=== PATIENT | male | born 1965 | race Hispanic/Latino ===

== ENCOUNTER → 2024-07-21 | Day surgery (SDC) | payer BC ==
[~2024-07-21] MED LIST: LIDOCAINE HCL 2% LOCAL INJ 5 ML SDV VIAL INJ ONE; MIDAZOLAM HCL 2 MG/2 ML VIAL ONE; PROPOFOL IV EMULSION 10 MG/ML 20 ML VIAL ONE
[2024-07-21] MEDS: LACTATED RINGER'S 1,000 ML ONE (07:39)
[2024-07-21 09:15] VITALS: BP 131/85; PULSE 66; RESP 16; TEMP 97.2; O2SAT 99
== END | disposition home or self-care (01) ==
LOC: OR 06:55
PROVIDERS: ATTEND Internal Medicine Gastroenterology
DX: Z12.11 Encounter for screening for malignant neoplasm of colon (principal); D12.3 Benign neoplasm of transverse colon; D12.4 Benign neoplasm of descending colon; D12.8 Benign neoplasm of rectum; K64.8 Other hemorrhoids; R03.0 Elevated blood-pressure reading, without diagnosis of hypertension; N40.0 Benign prostatic hyperplasia without lower urinary tract symptoms; N39.0 Urinary tract infection, site not specified; Z01.810 Encounter for preprocedural cardiovascular examination
CPT/HCPCS: 45380; 45384; 45385; 93005; J2003; J2250; J2704; J7121; 45378